=== PATIENT | female | born 1990 | race Caucasian/White ===

== ENCOUNTER 2019-12-21 12:11 | Day surgery (SDC) | payer OTHER ==
[~2019-12-21] VITALS: Ht 162.6 cm; Wt 85.2 kg
[2019-12-21] MEDS ORDERED: GLYCOPYRROLATE 0.2MG/1ML, 5ML ONE (12:23)
[2019-12-21] MEDS ORDERED: DEXAMETHASONE 4 MG/ML, 1ML ONE (12:23)
[2019-12-21] MEDS ORDERED: FENTANYL PF 250 MCG/5ML ONE (12:23)
[2019-12-21] MEDS ORDERED: ROCURONIUM 10MG/ML,5ML ONE (12:23)
[2019-12-21] MEDS ORDERED: PROPOFOL 10 MG/ML, 20ML ONE (12:23)
[2019-12-21] MEDS ORDERED: LIDOCAINE-MPF 2% ,5ML ONE (12:23)
[2019-12-21] MEDS ORDERED: MIDAZOLAM 1 MG/ML, 2ML ONE (12:23)
[2019-12-21] MEDS ORDERED: CEFAZOLIN 1,000 MG ONE (12:24)
[2019-12-21] MEDS ORDERED: KETOROLAC 30 MG/1 ML IVPush PRN (12:30)
[2019-12-21] MEDS ORDERED: hydrALAzine 20 MG/ML, 1ML IV PRN (12:30)
[2019-12-21] MEDS ORDERED: LORazepam 2 MG/ML, 1ML IVPush PRN (12:30)
[2019-12-21] MEDS ORDERED: EPHEDRINE 50 MG/ML, 1ML IVPush PRN (12:30)
[2019-12-21] MEDS ORDERED: EPHEDRINE 50 MG/ML, 1ML IM PRN (12:30)
[2019-12-21] MEDS ORDERED: METOCLOPRAMIDE 5 MG/ML, 2ML IVPush PRN (12:30)
[2019-12-21] MEDS ORDERED: morphine SULFATE 10 MG/ML, 1ML IVPush PRN (12:30)
[2019-12-21] MEDS ORDERED: DIPHENHYDRAMINE 50 MG/ML, 1ML IVPush PRN (12:30)
[2019-12-21] MEDS ORDERED: MEPERIDINE/PF 25MG/0.5ML IVPush PRN (12:30)
[2019-12-21] MEDS ORDERED: ONDANSETRON 2MG/ML, 2ML IVPush PRN (12:30)
[2019-12-21] MEDS ORDERED: HALOPERIDOL 5 MG/ML IV PRN (12:30)
[2019-12-21] MEDS ORDERED: HYDROcodone/APAP 7.5-325MG/15ML UDC PO PRN (12:30)
[2019-12-21] MEDS ORDERED: ALBUTEROL/IPRATROPIUM 2.5MG/0.5MG, 3 ML NPPB PRN (12:30)
[2019-12-21] MEDS ORDERED: OXYcodone 5 MG/5 ML ORAL.SOL UDC PO PRN (12:30)
[2019-12-21] MEDS ORDERED: HYDROmorphone 1 MG/ML, 1ML INJ IVPush PRN (12:30)
[2019-12-21] MEDS ORDERED: DIAZEPAM 5 MG/ML, 2ML IVPush PRN (12:30)
[2019-12-21] MEDS ORDERED: MIDAZOLAM 1 MG/ML, 2ML IV PRN (12:30)
[2019-12-21] MEDS ORDERED: LABETALOL 5MG/ML, 20ML IV PRN (12:30)
[2019-12-21 12:35] VITALS: BP 115/79
[2019-12-21] MEDS ORDERED: LACTATED RINGERS 1,000 ML IV SCH (12:35)
[2019-12-21] MEDS ORDERED: CHLORHEXIDINE 15 ML UDC ONE (12:41)
[2019-12-21] MEDS ORDERED: CHLORHEXIDINE 15 ML UDC MM ONE (13:00)
[2019-12-21 13:06] LABS: HCG UR SG 1.022 (1.003-1.030)
[2019-12-21] MEDS ORDERED: LIDOCAINE 1%, 20ML ONE (14:40)
[2019-12-21] MEDS ORDERED: ONDANSETRON 2MG/ML, 2ML ONE (14:40)
[2019-12-21] MEDS ORDERED: BUPIVACAINE/PF 0.5% ONE (15:55)
[2019-12-21] MEDS ORDERED: KETOROLAC 30 MG/1 ML ONE (15:55)
[2019-12-21] MEDS ORDERED: SCOPOLAMINE 1MG PATCH TD ONE ×2 (16:23→16:30)
[2019-12-21] MEDS ORDERED: FENTANYL PF 100 MCG/2ML ONE ×2 (16:40→17:02)
[2019-12-21] MEDS ORDERED: OXYcodone 5 MG/5 ML ORAL.SOL UDC ONE (16:40)
[2019-12-21] MEDS: FENTANYL PF 100 MCG/2ML IV PRN ×4 (16:42→17:08)
[2019-12-21] MEDS ORDERED: OXYC-307 PO (21:58)
[2019-12-21] MEDS ORDERED: DOCU-131 PO (21:59)
[2019-12-21] MEDS ORDERED: IBUP100O32 PO (21:59)
== END 2019-12-21 22:49 | disposition home or self-care (01) ==
LOC: OUT 12:11 → 3WST 17:50 → OUT 22:49
PROVIDERS: ATTEND Obstetrics & Gynecology
DX: D27.1 Benign neoplasm of left ovary (principal); R10.30 Lower abdominal pain, unspecified; N83.511 Torsion of right ovary and ovarian pedicle; N73.6 Female pelvic peritoneal adhesions (postinfective); Z79.899 Other long term (current) drug therapy; Z82.49 Family history of ischemic heart disease and other diseases of the circulatory system; Z83.3 Family history of diabetes mellitus
CPT/HCPCS: 58720; 58925; 81025; 88304; 88305; C1729; C1760; C1765; J0690; J1100; J1885; J2250; J2405; J2704; J3010; J7120; G0378